=== PATIENT | male | born 1990 | race Caucasian/White ===

== ENCOUNTER 2016-11-18 14:50 | Emergency (ER) | payer OTHER ==
[~2016-11-18] VITALS: Ht 170.2 cm; Wt 90.9 kg
[2016-11-18] MEDS ORDERED: LIDOCAINE HCL/PF 1% 2 ML VIAL IM ONE (17:15)
[2016-11-18] MEDS ORDERED: CefTRIAXone SODIUM 1 GM/VIAL IM ONE (17:15)
[2016-11-18] MEDS ORDERED: HYDROCODONE/ACETAMINOPHEN 5-325 MG TABLET PO ONE (17:15)
[2016-11-18 18:12] VITALS: BP 118/79
== END 2016-11-18 18:14 | disposition home or self-care (01) ==
LOC: EMS 14:53
DX: L03.115 Cellulitis of right lower limb (principal); M79.604 Pain in right leg
CPT/HCPCS: 96372; 99284; J0696; J3490